=== PATIENT | male | born 1940 | race Caucasian/White ===

== ENCOUNTER 2022-09-10 06:29 | Observation (INO) | payer MEDICARE ==
[~2022-09-10] VITALS: Ht 172.7 cm; Wt 83.5 kg
[~2022-09-10 06:29] MED LIST: ADVAIR INH; ALBUTEROL SULFATE INH; ALEVE; BUPROPION HCL100 MG PO; CALCET TABLET1 EACH; CEFAZOLIN SODIUM 2 GM ONE; CELECOXIB 200 MG CAP ONE; CENTRUM ADULT120 MCG; CENTRUM SILVER1 EAC2; CITALOPRAM HBR20 MG PO; DEXAMETHASONE SOD PHOS 10 MG/1 ML VIAL ONE; FOLIC ACID0.4 MG PO; FUROSEMIDE20 MG PO; GABAPENTIN 300 MG CAP ONE; GABAPENTIN600 MG PO; IRON; LACTATED RINGER'S 1,000 ML ONE; LOSARTAN POTAS100 MG PO; METFORMIN HCL500 M1 PO; NIACIN500 M2 PO; OMEPRAZOLE40 MG PO; OXYBUTYNIN CHLOR5 MG PO; SIMVASTATIN20 MG PO; SODIUM CHLORIDE 0.9% 500ML 500 ML ONE; SPIRIVA18 MCG INH; TRANEXAMIC ACID 20 ML ONE; VENTOLIN HFA18 GM INH; VITAMIN C1000 MG PO; VITAMIN D31 GM; Vancomycin IV 1 GM VIAL ONE; Vancomycin IV 1,000 MG ONE; ZINC
[2022-09-10] MEDS ORDERED: ROPIVACAINE 246.25 MG, EPINEPHRINE HCL 1:1000 1ML 0.5 MG, CLONIDINE HCL 0.08 MG, KETORO... INJ ONE ×5 (07:30)
[2022-09-10] MEDS ORDERED: HYDROCODONE/APAP 7.5MG-325MG 1 EA TAB PO PRN (08:45)
[2022-09-10] MEDS ORDERED: ONDANSETRON HCL INJ 2MG/ML 2ML 2 MG/ML VIAL IV PRN (08:45)
[2022-09-10] MEDS ORDERED: ACETAMINOPHEN 650 MG SUPP PR PRN (08:45)
[2022-09-10] MEDS ORDERED: HYDROCODONE/APAP 5MG-325MG TAB PO PRN (08:45)
[2022-09-10] MEDS ORDERED: DOCUSATE SODIUM 100 MG CAP PO PRN (08:45)
[2022-09-10] MEDS ORDERED: ZOLPIDEM TARTRATE 5 MG TAB PO PRN (08:45)
[2022-09-10] MEDS ORDERED: DIPHENHYDRAMINE HCL INJ 50 MG/ML VIAL IV PRN (08:45)
[2022-09-10] MEDS ORDERED: FENTANYL CITRATE/PF 100MCG/2 ML INJ ONE ×3 (09:09→13:33)
[2022-09-10] MEDS ORDERED: HYDROCODONE/APAP 5MG-325MG TAB ONE (09:20)
[2022-09-10] MEDS ORDERED: SODIUM CHLORIDE 0.9% 1000ML 1,000 ML IV SCH (10:00)
[2022-09-10] MEDS: ASPIRIN 325 MG TAB PO SCH ×2 (11:26→16:09)
[2022-09-10 11:39] VITALS: BP 140/76
[2022-09-10] MEDS ORDERED: ONDANSETRON HCL INJ 2MG/ML 2ML 2 MG/ML VIAL ONE (11:59)
[2022-09-10] MEDS ORDERED: SEVOFLURANE INHAL SOLN 250 ML PEN BTL ONE (11:59)
[2022-09-10] MEDS ORDERED: DEXAMETHASONE SOD PHOS INJ 4 MG/ML SDV ONE (11:59)
[2022-09-10] MEDS ORDERED: PROPOFOL IV EMULSION 10 MG/ML 20 ML VIAL ONE (11:59)
[2022-09-10] MEDS ORDERED: EPHEDRINE SULFATE INJ 50 MG/ML VIAL ONE (11:59)
[2022-09-10] MEDS ORDERED: LIDOCAINE HCL 2% LOCAL INJ 5 ML SDV VIAL INJ ONE (11:59)
[2022-09-10] MEDS ORDERED: POVIDONE IODINE 0.05% 0.05 % ML PO ONE (11:59)
[2022-09-10 12:16] VITALS: BP 140/76
[2022-09-10 12:47] VITALS: BP 140/76
[2022-09-10] MEDS ORDERED: SIMVASTATIN 20 MG TAB PO SCH (13:00)
[2022-09-10] MEDS ORDERED: ALBUTEROL SULFATE HFA 8GM INHALATION AEROSOL INH PRN (13:00)
[2022-09-10] MEDS ORDERED: BUPIVACAINE HCL 0.5% INJ 30 ML VIAL INJ ONE (13:08)
[2022-09-10] MEDS ORDERED: EPINEPHRINE HCL 1:1000 1ML 1 MG/ML AMP ONE (13:08)
[2022-09-10] MEDS ORDERED: MIDAZOLAM HCL 2 MG/2 ML VIAL ONE (13:30)
[2022-09-10] MEDS ORDERED: ASPIRIN81 MG PO (14:40)
[2022-09-10] MEDS ORDERED: CELECOXIB 200 MG CAP PO SCH (17:00)
[2022-09-10] MEDS ORDERED: OXYBUTYNIN CHLORIDE 5 MG TAB PO SCH ×2 (17:00)
[2022-09-11] MEDS ORDERED: PANTOPRAZOLE SOD 40 MG TABEC PO SCH (07:30)
[2022-09-11] MEDS ORDERED: ACETAMINOPHEN 1000 MG/100 ML IV PRN (08:45)
[2022-09-11] MEDS ORDERED: CITALOPRAM HYDROBROMIDE 20 MG TAB PO SCH (09:00)
[2022-09-11] MEDS ORDERED: BUPROPION HCL 100 MG TAB PO SCH (09:00)
[2022-09-11] MEDS ORDERED: LOSARTAN POTASSIUM 25 MG TAB PO SCH (09:00)
== END 2022-09-10 16:19 | disposition home health service (06) ==
LOC: OR 06:29 → PACU V 08:41 → MED/SURG 09:35
PROVIDERS: ADMIT Specialist; ATTEND Specialist
DX: M17.11 Unilateral primary osteoarthritis, right knee (principal); I10 Essential (primary) hypertension; E78.5 Hyperlipidemia, unspecified; K21.9 Gastro-esophageal reflux disease without esophagitis; G47.30 Sleep apnea, unspecified; E11.9 Type 2 diabetes mellitus without complications; Z20.822 Contact with and (suspected) exposure to COVID-19; Z79.84 Long term (current) use of oral hypoglycemic drugs; Z79.899 Other long term (current) drug therapy; Z79.82 Long term (current) use of aspirin
CPT/HCPCS: 0223U; 27447; 36415; 71046; 73560; 86850; 86900; 86920; 94799; 97110; 97116; 97161; 97530; C1713 ×2; C1776 ×4; G0378; J0171; J0690; J1100 ×2; J1885; J2001; J2250; J2405; J2704; J2795; J3010; J3370; J7030; J7040; J7121